=== PATIENT | male | born 1980 | race Caucasian/White ===

== ENCOUNTER 2018-04-01 15:08 | Observation (INO) | payer BC ==
[2018-04-01] VITALS (8 sets, daily range): BP systolic 96–111; BP diastolic 59–84; PULSE 57–82; TEMP 98.2–98.4
[~2018-04-01] VITALS: Ht 177.8 cm; Wt 84.1 kg
[2018-04-02] VITALS: BP 97/55; PULSE 55
[2018-04-02 04:00] VITALS: BP 95/61; PULSE 54; TEMP 97.5
[2018-04-02 07:04] VITALS: BP 95/56; PULSE 52; TEMP 96
[2018-04-02 10:59] VITALS: BP 110/62; PULSE 54; TEMP 97.6
== END 2018-04-02 15:40 | disposition home or self-care (01) ==
LOC: COL.RAD 15:08 → SURG 16:36
DX: K35.80 Unspecified acute appendicitis (principal)
CPT/HCPCS: G0378; J1885; J2270; J2405; J2543; J2704; J2710; J3010; Q9967